=== PATIENT | male | born 1970 | race Caucasian/White ===

== ENCOUNTER 2024-10-16 19:35 | Inpatient (IN) | payer OTHER ==
[2024-10-16 20:55] LABS: BASO % 0.8 % (0-2.0); HEMATOCRIT 34.3 % (35.4-49); HEMOGLOBIN 11.4 GM/dL (11.7-16.9); LYMPH % 10.1 % (8-40); MCH 32.2 pg (25.7-33.7); MCHC 33.1 g/dl (32.0-35.9); MEAN CELL VOLUME 97.3 fl (80-96); MEAN PLT VOLUME 9.9 fl (7.5-11.1); NEUT % 74.1 % (42.8-82.8); PLATELET COUNT 122 10^3/uL (134-434); RBC 3.53 M/mm3 (4.00-5.60); RDW 14.9 % (11.9-15.9); WHITE BLOOD COUNT 4.4 K/mm3 (4.0-10.0)
[2024-10-16 21:01] LABS: INR 1.13 (0.83-1.09)
[2024-10-16 21:04] LABS: ACTIVATED PTT 33.7 SECONDS (25.2-36.5)
[2024-10-16 21:14] LABS: EPI CELLS 4 /uL (0-25.1); HYALINE CASTS 2 /uL (0-3.1); PH,URINE 5.5 (5.0-8.0); URINE APPEARANCE CLEAR; URINE BACTERIA 5 /uL (0-1359); URINE BILIRUBIN NEGATIVE (NEGATIVE); URINE COLOR YELLOW; URINE GLUCOSE (UA) NEGATIVE (NEGATIVE); URINE KETONE NEGATIVE (NEGATIVE); URINE LEUK ESTERASE NEGATIVE (NEGATIVE); URINE NITRITE NEGATIVE (NEGATIVE); URINE PROTEIN 3+ (NEGATIVE); URINE RBC 29 /uL (0-23.9); URINE UROBILINOGEN 0.2 mg/dL (0.2-1.0); URINE WBC 10 /uL (0-25.8)
[2024-10-16 21:19] LABS: POTASSIUM 4.2 mmol/L (3.5-5.1)
[2024-10-16 21:21] LABS: ALBUMIN 3.7 g/dl (3.4-5.0); BLOOD UREA NITROGEN 82.8 mg/dL (7-18); CALCIUM 9.4 mg/dL (8.5-10.1)
[2024-10-16 21:25] LABS: CREATININE 4.5 mg/dL (0.55-1.3)
[2024-10-16 21:26] LABS: BILIRUBIN,TOTAL 0.5 mg/dL (0.2-1); TOT PROT 7.1 g/dl (6.4-8.2)
[2024-10-16] MEDS ORDERED: MAGNESIUM 1GM/D5W - 1 GM/100 ML IVPB IVPB ONE (22:37)
[2024-10-16] MEDS: MAGNESIUM 1GM/D5W - 1 GM/100 ML IVPB IVPB ONE (23:01)
[2024-10-17 03:08] VITALS: BMI 34.0
[2024-10-17] MEDS: SODIUM CHLORIDE 0.45% 1,000 ML IV SCH ×2 (05:54→18:40)
[2024-10-17] MEDS ORDERED: HEPARIN NA (PORCINE) 5,000 UNITS/ML 1ML VIAL SQ SCH (06:00)
[2024-10-17 09:09] LABS: BASO % 0.9 % (0-2.0); EOS % 3.4 % (0-4.5); HEMATOCRIT 33.6 % (35.4-49); HEMOGLOBIN 11.3 GM/dL (11.7-16.9); LYMPH % 24.9 % (8-40); MCH 32.4 pg (25.7-33.7); MCHC 33.7 g/dl (32.0-35.9); MEAN CELL VOLUME 95.9 fl (80-96); MONO % 11.7 % (3.8-10.2); NEUT % 59.1 % (42.8-82.8); PLATELET COUNT 119 10^3/uL (134-434); RDW 15.2 % (11.9-15.9); WHITE BLOOD COUNT 3.4 K/mm3 (4.0-10.0)
[2024-10-17 10:08] LABS: CALCIUM 9.6 mg/dL (8.5-10.1)
[2024-10-17 10:09] LABS: ALBUMIN 3.5 g/dl (3.4-5.0); BLOOD UREA NITROGEN 78.4 mg/dL (7-18); MAGNESIUM 1.9 mg/dL (1.8-2.4)
[2024-10-17 10:12] LABS: CREATININE 4.1 mg/dL (0.55-1.3); PHOSPHOROUS 3.8 mg/dL (2.5-4.9)
[2024-10-17 10:13] LABS: BILIRUBIN,TOTAL 0.7 mg/dL (0.2-1); TOT PROT 6.7 g/dl (6.4-8.2)
[2024-10-17] MEDS: LOSARTAN 50MG/HCTZ 12.5MG 1 TAB PO SCH (10:20)
[2024-10-17] MEDS: SERTRALINE HCL 50 MG TABLET (FP) PO SCH (10:20)
[2024-10-17] MEDS: APIXABAN 5 MG TABLET PO SCH (10:20)
[2024-10-17] MEDS: PANTOPRAZOLE 40 MG TABLET PO SCH (21:53)
[2024-10-17] MEDS ORDERED: ROSUVASTATIN CA 20 MG TABLET PO SCH (22:00)
[2024-10-18 09:54] LABS: BASO % 0.8 % (0-2.0); EOS % 2.6 % (0-4.5); HEMATOCRIT 35.7 % (35.4-49); HEMOGLOBIN 11.8 GM/dL (11.7-16.9); LYMPH % 21.8 % (8-40); MCH 32.2 pg (25.7-33.7); MCHC 33.1 g/dl (32.0-35.9); MEAN CELL VOLUME 97.3 fl (80-96); MEAN PLT VOLUME 10.2 fl (7.5-11.1); MONO % 11.1 % (3.8-10.2); NEUT % 63.7 % (42.8-82.8); PLATELET COUNT 125 10^3/uL (134-434); RBC 3.67 M/mm3 (4.00-5.60); WHITE BLOOD COUNT 4.3 K/mm3 (4.0-10.0)
[2024-10-18 10:11] LABS: CALCIUM 9.7 mg/dL (8.5-10.1); PHOSPHOROUS 3.7 mg/dL (2.5-4.9)
[2024-10-18 10:12] LABS: ALBUMIN 3.6 g/dl (3.4-5.0); BLOOD UREA NITROGEN 59.5 mg/dL (7-18); MAGNESIUM 1.7 mg/dL (1.8-2.4)
[2024-10-18 10:14] LABS: CREATININE 3.7 mg/dL (0.55-1.3)
[2024-10-18 10:16] LABS: BILIRUBIN,TOTAL 0.8 mg/dL (0.2-1); TOT PROT 6.9 g/dl (6.4-8.2)
[2024-10-18] MEDS: NIFEdipine E.R. 30 MG TABLET PO SCH (16:38)
[2024-10-18 22:06] LABS: ANTIGLOMERULAR BASEMENT MEN.AB <0.2 units (0.0-0.9)
[2024-10-19 08:57] LABS: BASO % 0.9 % (0-2.0); EOS % 2.8 % (0-4.5); HEMOGLOBIN 11.7 GM/dL (11.7-16.9); LYMPH % 21.6 % (8-40); MCH 32.3 pg (25.7-33.7); MCHC 33.3 g/dl (32.0-35.9); MEAN CELL VOLUME 96.9 fl (80-96); MEAN PLT VOLUME 10.1 fl (7.5-11.1); MONO % 10.1 % (3.8-10.2); NEUT % 64.6 % (42.8-82.8); PLATELET COUNT 130 10^3/uL (134-434); RBC 3.61 M/mm3 (4.00-5.60); RDW 14.7 % (11.9-15.9); WHITE BLOOD COUNT 4.4 K/mm3 (4.0-10.0)
[2024-10-19 08:59] LABS: POTASSIUM 3.8 mmol/L (3.5-5.1)
[2024-10-19 09:01] LABS: CALCIUM 9.5 mg/dL (8.5-10.1)
[2024-10-19 09:02] LABS: ALBUMIN 3.4 g/dl (3.4-5.0); BLOOD UREA NITROGEN 54.8 mg/dL (7-18)
[2024-10-19 09:05] LABS: CREATININE 3.6 mg/dL (0.55-1.3)
[2024-10-19 09:06] LABS: BILIRUBIN,TOTAL 0.5 mg/dL (0.2-1)
[2024-10-19 09:07] LABS: TOT PROT 6.7 g/dl (6.4-8.2)
[2024-10-19] MEDS: SODIUM CHLORIDE 0.45% 1,000 ML IV SCH (16:23)
[2024-10-19 17:37] LABS: EPI CELLS 3 /uL (0-25.1); HYALINE CASTS 0 /uL (0-3.1); PH,URINE 5.5 (5.0-8.0); URINE APPEARANCE CLEAR; URINE BACTERIA 1 /uL (0-1359); URINE BILIRUBIN NEGATIVE (NEGATIVE); URINE COLOR YELLOW; URINE GLUCOSE (UA) NEGATIVE (NEGATIVE); URINE KETONE NEGATIVE (NEGATIVE); URINE LEUK ESTERASE NEGATIVE (NEGATIVE); URINE NITRITE NEGATIVE (NEGATIVE); URINE PROTEIN 2+ (NEGATIVE); URINE RBC 10 /uL (0-23.9); URINE UROBILINOGEN 0.2 mg/dL (0.2-1.0); URINE WBC 7 /uL (0-25.8)
[2024-10-20 10:18] LABS: BASO % 0.7 % (0-2.0); EOS % 2.5 % (0-4.5); HEMOGLOBIN 11.6 GM/dL (11.7-16.9); LYMPH % 22.6 % (8-40); MCH 32.1 pg (25.7-33.7); MCHC 33.1 g/dl (32.0-35.9); MEAN CELL VOLUME 97.1 fl (80-96); MEAN PLT VOLUME 10.1 fl (7.5-11.1); MONO % 11.6 % (3.8-10.2); NEUT % 62.6 % (42.8-82.8); PLATELET COUNT 128 10^3/uL (134-434); RBC 3.61 M/mm3 (4.00-5.60); RDW 14.9 % (11.9-15.9); WHITE BLOOD COUNT 4.3 K/mm3 (4.0-10.0)
[2024-10-20 10:27] LABS: POTASSIUM 3.9 mmol/L (3.5-5.1)
[2024-10-20 10:30] LABS: CALCIUM 9.4 mg/dL (8.5-10.1)
[2024-10-20 10:31] LABS: ALBUMIN 3.5 g/dl (3.4-5.0); BLOOD UREA NITROGEN 48.1 mg/dL (7-18)
[2024-10-20 10:34] LABS: CREATININE 3.3 mg/dL (0.55-1.3)
[2024-10-20 10:36] LABS: BILIRUBIN,TOTAL 0.5 mg/dL (0.2-1); TOT PROT 6.6 g/dl (6.4-8.2)
[2024-10-21 10:32] LABS: HIV INTERPRETATION NEGATIVE (NEGATIVE)
[2024-10-22] MEDS: NIFEdipine E.R 60 MG TABLET PO SCH (09:06)
[2024-10-22 10:44] LABS: BASO % 0.8 % (0-2.0); EOS % 2.5 % (0-4.5); HEMATOCRIT 36.5 % (35.4-49); HEMOGLOBIN 12.4 GM/dL (11.7-16.9); LYMPH % 19.1 % (8-40); MCH 32.6 pg (25.7-33.7); MCHC 34.1 g/dl (32.0-35.9); MEAN CELL VOLUME 95.5 fl (80-96); MEAN PLT VOLUME 10.6 fl (7.5-11.1); MONO % 9.9 % (3.8-10.2); NEUT % 67.7 % (42.8-82.8); PLATELET COUNT 149 10^3/uL (134-434); RBC 3.82 M/mm3 (4.00-5.60); WHITE BLOOD COUNT 4.9 K/mm3 (4.0-10.0)
[2024-10-22 10:46] LABS: CALCIUM 9.8 mg/dL (8.5-10.1)
[2024-10-22 10:48] LABS: ALBUMIN 3.9 g/dl (3.4-5.0); BLOOD UREA NITROGEN 46.6 mg/dL (7-18); MAGNESIUM 1.8 mg/dL (1.8-2.4)
[2024-10-22 10:50] LABS: CREATININE 3.2 mg/dL (0.55-1.3)
[2024-10-22 10:52] LABS: BILIRUBIN,TOTAL 0.7 mg/dL (0.2-1); TOT PROT 7.4 g/dl (6.4-8.2)
[2024-10-22] MEDS ORDERED: FENTANYL CITRATE/PF 50 MCG/ML VIAL ONE (10:57)
[2024-10-22] MEDS: SODIUM CHLORIDE 500 ML IV SCH (12:26)
[2024-10-22] MEDS: FENTANYL CITRATE/PF 50 MCG/ML VIAL IVPUSH ONE (12:31)
[2024-10-22 14:10] VITALS: RESP 18
[2024-10-22 16:07] LABS: C-ANCA <1:20 titer (Neg:<1:20)
[2024-10-23 09:57] LABS: BASO % 0.7 % (0-2.0); EOS % 2.2 % (0-4.5); HEMATOCRIT 35.6 % (35.4-49); HEMOGLOBIN 12.2 GM/dL (11.7-16.9); MCH 32.7 pg (25.7-33.7); MCHC 34.3 g/dl (32.0-35.9); MEAN CELL VOLUME 95.5 fl (80-96); MEAN PLT VOLUME 10.4 fl (7.5-11.1); MONO % 11.1 % (3.8-10.2); PLATELET COUNT 138 10^3/uL (134-434); RBC 3.73 M/mm3 (4.00-5.60); RDW 15.1 % (11.9-15.9); WHITE BLOOD COUNT 4.5 K/mm3 (4.0-10.0)
[2024-10-23 10:43] LABS: ALBUMIN 3.7 g/dl (3.4-5.0)
[2024-10-23 10:44] LABS: BLOOD UREA NITROGEN 40.8 mg/dL (7-18); CALCIUM 9.8 mg/dL (8.5-10.1)
[2024-10-23 10:47] LABS: CREATININE 2.9 mg/dL (0.55-1.3)
[2024-10-23 10:48] LABS: BILIRUBIN,TOTAL 0.8 mg/dL (0.2-1); TOT PROT 7.1 g/dl (6.4-8.2)
[2024-10-23 11:37] VITALS: BP 119/83; PULSE 81; TEMP 98.4
[2024-10-23 14:09] LABS: DRVVT - 34.3 sec (0.0-47.0)
[2024-10-24 19:06] LABS: FREE KAPPA,SERUM 52.6 mg/L (3.3-19.4)
== END 2024-10-23 11:45 | disposition home or self-care (01) | DRG 470 ==
LOC: JER 19:35 → JERBED 22:26 → INTOOBSV 22:26 → J5S 10-17 03:12 → OBSVTOIN 10-21 10:53
PROVIDERS: ADMIT Internal Medicine; ATTEND Internal Medicine
PROC: 0TB03ZX Excision of Right Kidney, Percutaneous Approach, Diagnostic (ICD-10-PCS; principal; 2024-10-22)
DX: I12.9 Hypertensive chronic kidney disease with stage 1 through stage 4 chronic kidney disease, or unspecified chronic kidney disease (principal); D69.6 Thrombocytopenia, unspecified; I82.3 Embolism and thrombosis of renal vein; K76.6 Portal hypertension; N18.4 Chronic kidney disease, stage 4 (severe); N17.9 Acute kidney failure, unspecified; R16.0 Hepatomegaly, not elsewhere classified; K21.9 Gastro-esophageal reflux disease without esophagitis; K74.60 Unspecified cirrhosis of liver; R74.01 Elevation of levels of liver transaminase levels; N05.8 Unspecified nephritic syndrome with other morphologic changes
CPT/HCPCS: 36415; 50200; 74150-TC; 76700-TC; 77012-TC; 80053; 81003; 82105; 82550; 82553; 82570; 83516; 83520; 83735; 83883; 84100; 84153; 84155; 84156; 84165; 85025; 85045; 85610; 85613; 85730; 85732; 86038; 86160; 86225; 86235; 86256; 86301; 86704; 86803; 86850; 86900; 86901; 87086; 87340; 87389; 87517; 88300-TC; 93005; 93010; 93975; 99285-25; G0378

== ENCOUNTER 2025-04-16 06:57 | Day surgery (SDC) | payer OTHER ==
[2025-04-16 11:22] VITALS: BMI 31.4
[2025-04-16 11:57] VITALS: TEMP 97.9
[2025-04-16 12:36] VITALS: RESP 18
[2025-04-16 12:39] VITALS: BP 141/82; PULSE 67
== END 2025-04-16 12:35 | disposition home or self-care (01) ==
LOC: JASU-ENDO 06:57
PROVIDERS: ATTEND Internal Medicine Gastroenterology
PROC: 0DBN8ZX Excision of Sigmoid Colon, Via Natural or Artificial Opening Endoscopic, Diagnostic (ICD-10-PCS; 2025-04-16)
PROC: 0DBP8ZX Excision of Rectum, Via Natural or Artificial Opening Endoscopic, Diagnostic (ICD-10-PCS; 2025-04-16)
PROC: 0DBK8ZX Excision of Ascending Colon, Via Natural or Artificial Opening Endoscopic, Diagnostic (ICD-10-PCS; principal; 2025-04-16 11:00)
DX: Z12.11 Encounter for screening for malignant neoplasm of colon (principal); D12.5 Benign neoplasm of sigmoid colon; D12.8 Benign neoplasm of rectum; D12.2 Benign neoplasm of ascending colon; K64.8 Other hemorrhoids; K57.30 Diverticulosis of large intestine without perforation or abscess without bleeding; Z80.0 Family history of malignant neoplasm of digestive organs
CPT/HCPCS: 88305-TC